=== PATIENT | female | born 1955 | race Caucasian/White ===

== ENCOUNTER 2019-04-09 21:11 | Emergency (ER) | payer MEDICAID, SELFPAY ==
[2019-04-09 21:12] VITALS: BP 160/92; PULSE 83; RESP 16; TEMP 36.4; O2SAT 97; BMI 34.4
[2019-04-09 22:23] VITALS: BP 141/72; PULSE 74; RESP 18; O2SAT 98
--- NOTE | 2019-04-09 22:23 | ED.VIS.GEN ---
History of Present Illness Chief Complaint: Allergic Reaction Narrative: This patient is a 63-year-old female who presents with an allergic reaction versus cellulitis. She had influenza and pneumonia vaccinations a couple of days ago. Today she noticed some redness and swelling to her left arm. She was seen at an urgent care and they were uncertain if this was a localized allergic reaction versus the start of cellulitis. She was advised on supportive care, not started on any medications, but told if it worsened to be reevaluated. At the earlier visit to the extent of the erythema was demarcated with a marker and it has now extended past this. She also complains of some pain and discomfort with movement. She is not diabetic. No systemic symptoms such as fevers or nausea. Past Medical History - Allergies and Home Meds Allergies/Adverse Reactions: Allergies acetaminophen [From Percocet] Adverse Reaction (Verified 04/09/19 21:32) Itching oxycodone [From Percocet] Adverse Reaction (Verified 04/09/19 21:32) Itching Primary Care Physician: Corrina Givens DO [Primary Care Provider] - Past Medical History: - - Hypertension, GERD Smoking Status: Current every day smoker Review of Systems All systems negative except as indicated General: Denies: Fever Cardiovascular: Denies: Chest pain Respiratory: Denies: Dyspnea Skin: Reports: Rash Physical Exam Vital Signs/Narrative: Vital Signs Temp Pulse Resp BP Pulse Ox 04/09/19 21:12 97.5 F L 83 16 160/92 H 97 Inital Vital Signs reviewed: Yes General: Well nourished Head: Normocephalic Eyes: EOMI ENT: Moist mucous membranes Neck: Supple Cardiovascular: Regular rate Respiratory: No distress Skin: - - There is erythema and induration over the lateral left arm with an irregular border which extends past a [place] drawn with a marker no fluctuance no drainage no streaking Psychological: Normal affect Diagnostic/Tx/Re-eval - Medical Decision Making Patient's presentation is more suggestive of cellulitis although could still possibly just be a localized reaction. I would err on the side of antibiotics. She was given first dose of Keflex here as well as a prescription for the same and advised on supportive care. She was instructed on signs and symptoms to monitor for and understands to return for new or worsening symptoms. ED Disposition - Plan for ED Patient: Disposition: Home or Assisted Living Diagnosis: Cellulitis Instructions: Cellulitis Prescriptions: Cephalexin [Keflex] 500 mg PO Q6 #40 cap Prescription Printed Referrals: Corrina Givens DO [Primary Care Provider] -
[2019-04-09] MEDS: Cephalexin 250 MG Capsule 500 MG PO (22:38)
== END 2019-04-09 22:40 | disposition home or self-care (01) ==
PROVIDERS: Emergency Provider Emergency Medicine
DX: L03.114 Cellulitis of left upper limb (principal); F17.200 Nicotine dependence, unspecified, uncomplicated; I10 Essential (primary) hypertension; K21.9 Gastro-esophageal reflux disease without esophagitis; Z79.899 Other long term (current) drug therapy
CPT/HCPCS: 99283